=== PATIENT | female | born 1990 | race African-American/Black ===

== ENCOUNTER 2024-02-14 10:19 | Emergency (ER) | payer MEDICAID, OTHER ==
[~2024-02-14] VITALS: Ht 167.6 cm; Wt 100.0 kg
[~2024-02-14 10:19] MED LIST: AZIT1PAC7; FLUT10SP; LORA10CA; PROMETHAZINE
[2024-02-14 10:34] VITALS: O2SAT 100
[2024-02-14] MEDS ORDERED: OFLO5DRO4 RIGHT EAR (11:21)
[2024-02-14 11:30] VITALS: BP 156/84; PULSE 92; RESP 16; TEMP 97.9
[2024-02-14] MEDS: ACETAMINOPHEN 325MG TABLET PO ONE (11:30)
== END 2024-02-14 11:59 | disposition home or self-care (01) ==
LOC: ER 10:19
DX: H60.91 Unspecified otitis externa, right ear (principal); I10 Essential (primary) hypertension; Z98.890 Other specified postprocedural states
CPT/HCPCS: 99283

== ENCOUNTER 2024-08-26 15:23 | Emergency (ER) | payer OTHER ==
[~2024-08-26] VITALS: Ht 167.6 cm; Wt 98.0 kg
[~2024-08-26 15:23] MED LIST changes: +OFLO5DRO4 RIGHT EAR
[2024-08-26 15:28] VITALS: BP 142/76; O2SAT 100
[2024-08-26] MEDS ORDERED: AMOX500T2 MT (16:10)
[2024-08-26] MEDS ORDERED: ACET325T52 MT (16:10)
[2024-08-26] MEDS ORDERED: ACET160S MT (16:39)
[2024-08-26] MEDS ORDERED: AMOXL215 MT (16:39)
[2024-08-26 16:48] VITALS: PULSE 82; RESP 16; O2SAT 100
== END 2024-08-26 16:46 ==
LOC: ER 15:23
DX: J02.9 Acute pharyngitis, unspecified (principal); I10 Essential (primary) hypertension; Z79.899 Other long term (current) drug therapy
CPT/HCPCS: 81025; 87070; 87430; 99283

== ENCOUNTER 2025-03-10 09:14 | Emergency (ER) | payer OTHER ==
[~2025-03-10] VITALS: Ht 167.6 cm; Wt 100.0 kg
[~2025-03-10 09:14] MED LIST changes: +ACET160S MT; +AMOXL215 MT
[2025-03-10 09:21] VITALS: O2SAT 100
[2025-03-10] MEDS: ACETAMINOPHEN 325MG TABLET PO ONE (09:35)
[2025-03-10] MEDS: ACETAMINOPHEN 650MG/20.3ML UDC PO NR (09:41)
[2025-03-10 09:42] LABS: BASOPHILS % 0.1 % (0.0-2.0); EOSINOPHILS % 0.8 % (0.0-5.0); HEMATOCRIT. 39.4 % (36.0-48.0); HEMOGLOBIN. 12.7 g/dL (12.0-16.0); LYMPHOCYTES % 14.8 % (20.0-50.0); MEAN CORPUSCULAR HEMOGLOBIN 21.7 pg (28.0-32.0); MEAN CORPUSCULAR HGB CONC 32.3 g/dL (31.0-37.0); MEAN CORPUSCULAR VOLUME 67.1 fL (81.0-99.0); MEAN PLATELET VOLUME 9.3 fl (7.4-10.4); NEUTROPHILS % 80.3 % (40.0-76.0); PLATELET 393 x1000/uL (130-400); RED BLOOD CELL COUNT 5.88 mill/uL (4.2-5.4); RED CELL DISTRIBUTION WIDTH 16.4 % (11.6-14.6); WHITE BLOOD COUNT 10.8 x1000/uL (4.5-11.0)
[2025-03-10 09:45] LABS: ADD RBC MORPHOLOGY YES; DIFFERENTIAL COMMENT 1
[2025-03-10 09:58] LABS: CARBON DIOXIDE 21 mEq/L (21-32); CHLORIDE 103 mEq/L (98-107); POTASSIUM 3.7 mEq/L (3.5-5.1); SODIUM 134 mEq/L (136-145)
[2025-03-10 09:59] LABS: CALCIUM 9.3 mg/dL (8.7-10.4)
[2025-03-10 10:03] LABS: CREATININE 0.9 mg/dL (0.6-1.0)
[2025-03-10 10:04] LABS: GLUCOSE 116 mg/dL (70-105); UREA NITROGEN BLOOD 11 mg/dL (9-23)
[2025-03-10 10:05] LABS: ANISOCYTOSIS 1+; HYPOCHROMASIA 2+; MICROCYTOSIS 3+; PLATELET ESTIMATE NORMAL
[2025-03-10 10:19] LABS: CLARITY URINE TURBID (CLEAR); COLOR URINE DARK YELLOW (YELLOW); GLUCOSE URINE NEGATIVE (NEGATIVE); KETONES URINE TRACE (NEGATIVE); LEUKOCYTE ESTERASE URINE 2+ (NEGATIVE); NITRITE URINE NEGATIVE (NEGATIVE); OCCULT BLOOD URINE TRACE (NEGATIVE); PH URINE 5.5 (4.5-8.0); PROTEIN URINE 2+ (NEGATIVE); SPECIFIC GRAVITY URINE 1.021 (1.005-1.030); UROBILINOGEN URINE 0.2 E.U./dL (0.2-1.0)
[2025-03-10 10:22] LABS: HCG SCREEN NEGATIVE
[2025-03-10 10:40] LABS: SQUAMOUS EPITHELIAL CELL URINE 3+ /lpf (RARE/1+)
[2025-03-10 10:43] LABS: WBC URINE 15-25 /hpf (0-2)
[2025-03-10 10:44] LABS: BACTERIA URINE 3+; RBC URINE 0-2 /hpf (0-2)
[2025-03-10] MEDS: CEFTRIAXONE 1GM/50ML 50 ML IV ONE (11:23)
[2025-03-10] MEDS: SODIUM CHLORIDE 0.9% 1,000 ML IV ONE (11:23)
[2025-03-10] MEDS: DIPHENOXYLATE/ATROPINE 2.5/0.025MG TABLET PO ONE (11:47)
[2025-03-10] MEDS ORDERED: ONDA4TAB50 MT (15:04)
[2025-03-10] MEDS ORDERED: TOPUD MT (15:04)
[2025-03-10] MEDS ORDERED: NITR-87 MT (15:04)
[2025-03-10] MEDS ORDERED: IBUP-1525 MT (15:04)
[2025-03-10 15:35] VITALS: BP 173/116; PULSE 112; RESP 18; TEMP 36.8; O2SAT 100
== END 2025-03-10 15:35 | disposition home or self-care (01) ==
LOC: ER 09:14
DX: N39.0 Urinary tract infection, site not specified (principal); I10 Essential (primary) hypertension; E11.9 Type 2 diabetes mellitus without complications; Z79.899 Other long term (current) drug therapy; Z98.890 Other specified postprocedural states
CPT/HCPCS: 80048; 81003; 81025; 84703; 85025; 87086; 36415; 74176; 96374; 99285; J0696; J7030; Z7610